=== PATIENT | male | born 1950 | race Caucasian/White ===

== ENCOUNTER 2016-09-08 09:58 | Day surgery (SDC) | payer MEDICARE, OTHER ==
[~2016-09-08] VITALS: Ht 182.9 cm; Wt 96.5 kg
[~2016-09-08 09:58] MED LIST: ALBU18HF INH; Lactated Ringer's 1,000 ML IV ONE; METF500T4 PO; OMEP40CA36 PO; SIMV20TA4 PO; TIOT18CA3 IH
[2016-09-08] MEDS ORDERED: Lidocaine PF 1% 30 mL Inj ONE (09:59)
[2016-09-08] MEDS ORDERED: Propofol 10,000 mCg/mL 20 mL Inj ONE (09:59)
[2016-09-08 10:29] VITALS: BP 115/74; PULSE 94; RESP 16; O2SAT 94
[2016-09-08] MEDS ORDERED: CANA100T PO (10:29)
[2016-09-08] MEDS ORDERED: FLUT15.88 NS (10:29)
[2016-09-08] MEDS ORDERED: IPRA4AER IH (10:29)
[2016-09-08] MEDS ORDERED: GLPZ5T PO (10:29)
[2016-09-08] MEDS ORDERED: ADV100INH IH (10:29)
--- NOTE | 2016-09-08 10:43 | PCM.HPANE ---
Patient Data Date of Service: Sep 08, 2016 Surgeon Admitting Provider: Attending Provider:Thomas Palmer MD Primary Care Physician:Fannie Ray MD Other Provider:Jaun Mathews Anesthesia Reason for Visit Hx Of Colon Polyps/Dysphagia Ht/WT & BMI Height (Feet): 6 Height (Inches): 0 Weight (Kilograms): 96.5 Body Mass Index 28.00 Allergies Coded Allergies: cortisone (Verified Allergy, Unknown, 09/07/16) oxycodone (Verified Allergy, Unknown, 09/08/16) Past Anesthesia History Anesthesia History: Denies:: Abnormal Airway, Anesthesia Reactions, Difficult Intubation, Fam Anesthesia Reaction, Fam Malignant Hypertherm, Malignant Hyperthermia Diabetes History Hx Diabetes?: Yes MRSA MRSA: No Medications Hypertension Medication: No Home Meds Incl Beta [place]: No Reported Medications Canagliflozin (Invokana)100 Mg [id number] Mg PO DAILY 09/08/16 Glipizide 5 Mg Tablet5 Mg PO DAILY 30 Days 09/08/16 Fluticasone Propionate 50 Mcg/Actuation [place].susp1 Ml NS DIRECTED PRN For Congestion 09/08/16 Albuterol/Ipratropium (Combivent Respimat Inhal [place])120 Spr/4 Gm Inhaler1 Puff IH QID #1 INH Ref 0 09/08/16 Fluticasone/Salmeterol (Advair 100-50 Diskus)60 Puffs/Inh Disk1 Puffs IH BID #1 DISK Ref 0 09/08/16 Albuterol Sulfate (Ventolin HFA Inhaler)200 Puff/18 Gm Inhaler1 Puff INH Q4 PRN For Wheezing #1 INHALER Ref 0 09/07/16 Tiotropium [place] (Spiriva)18 Mcg Cap.w.dev18 Mcg IH DAILY #1 PKG Ref 0 09/07/16 Simvastatin 20 Mg Mbbijr21 Mg PO HS Ref 0 09/07/16 Omeprazole 40 Mg Capsule.dr40 Mg PO BID Ref 0 09/07/16 Discontinued Reported Medications Metformin 500 Mg [id number] Mg PO BID Ref 0 09/07/16 History HEENT History: Positive for:: Dysphagia Denies:: Abnormal Airway Difficult Intubation Hearing Problem Denture Type: Partial- Upper Hx of Heart Problems?: No Cardiovascular History: Denies:: Pacemaker Hx of Respiratory Problem?: Yes Respiratory History: Positive for:: Asthma COPD Denies:: Tuberculosis (BCG tx in past; pt will test false positive) Neurological History: Denies:: CVA Hx of GI Problems?: Yes Gastrointestinal History: Positive for:: Gastroesphageal Reflux Hx of Problems?: No HX of Peritoneal Dialysis: No Hx Musculoskeletal Problems?: No Hx of Psycho/Social Problems?: No Hx Surgeries?: Yes (Bladder tumor removal, eyes, hernia rpr, foot neuroma, skin ca,) Hx Any Other Health Problems?: Yes Hx Diabetes: Yes Hx Alcohol Use: No Smoking Status: Former Smoker Stop/Bang Treated for Sleep Apnea?: No Do You Have a CPAP Machine?: No S-Snoring: Do You Snore Loudly: No T-Tired: feel tired, fatigued: No O-Obsered: Observed not breath: No P-Blood Pressure: treated: No B- Body Mass Index > 35 kg/m2: No A- Age over 50: Yes N- Neck Large Circumference: No G- Gender Male: Yes VERNA Total Score: 2 VERNA Risk Assessment: Low Risk, <3 Yes Risk Assessment Category Category 1A: Patient has history of documented sleep apnea, and HAS NOT received any narcotic, sedative or anesthesia administration during this stay. Category 1B: Patient has history of documented sleep apnea, and HAS received any narcotic , sedative or anesthesia administration during this stay Category 2: Patient has SUSPECTED Obstructive Sleep Apnea, and HAS received any narcotic , sedative or anesthesia administration during this stay. Category 3: Patient has SUSPECTED Obstructive Sleep Apnea and HAS NOT received narcotic, sedative or anesthesia administration during this stay. Category 4: Outpatient in Procedural Areas with known sleep apnea or who screen positive for High Risk via the STOP/BANG questionnaire. Exam Exam Vital Signs Vital Signs Date Time Temp Pulse Resp B/P Pulse Ox O2 Delivery O2 Flow Rate FiO2 09/08/16 10:29 94 16 115/74 94 Room Air General Appearance: Alert, Oriented X3, Cooperative HEENT/AIRWAY: MP 2, Neck Movement (Full), Mouth Opening (Wide) Lungs: Clear to Auscultation, Normal Air Movement Heart: Regular Rate/Rhythm, Normal S1, Normal S2 Plan Impression Patient chart reviewed, patient interviewed and anesthestic plan with risks, benefits, and alternatives discussed, and informed consent obtained. NPO Status: > 2 hours ASA Physical Status: ASA3 Severe Disease Anesthetic Plan: MAC Bene/Risks/Altern/Consents: Yes HP Complete Prior to Induction: Yes Germain Oliver MD Sep 08, 2016 10:43
[2016-09-08] MEDS ORDERED: Lactated Ringer's 1,000 ML IV SCH (10:44)
[2016-09-08] MEDS ORDERED: MetoCLOpramide 5 mg/mL 2 mL Inj IVPUSH PRN (10:45)
[2016-09-08] MEDS ORDERED: Atropine 0.4 mg/mL Inj IVPUSH PRN (10:45)
[2016-09-08] MEDS ORDERED: Ondansetron 2 mg/mL 2 mL Inj IVPUSH PRN (10:45)
[2016-09-08 11:15] VITALS: BP 86/62; PULSE 88; RESP 16; O2SAT 94
--- NOTE | 2016-09-08 11:24 | PCM.ANEP1 ---
Post Anesthesia Phase 1 PACU Phase 1 Assessment Date of Service: Sep 08, 2016 Vital Signs Vital Signs Date Time Temp Pulse Resp B/P Pulse Ox O2 Delivery O2 Flow Rate FiO2 09/08/16 11:15 36.3 88 16 86/62 94 Room Air 09/08/16 10:29 94 16 115/74 94 Room Air Anesthetic Administered: MAC Level of Alertness: Sleepy, easy to arouse WERNER's with Equal Strength: Yes Pain: No Nausea or Vomiting: No Oxygen Delivery: Room Air Lungs: Normal Air Movement Germain Oliver MD Sep 08, 2016 11:24
[2016-09-08 11:25] VITALS: BP 98/65; PULSE 82; RESP 16; O2SAT 94
[2016-09-08 11:35] VITALS: BP 98/62; RESP 16; O2SAT 94
[2016-09-08 11:45] VITALS: BP 105/69; PULSE 88; RESP 16; O2SAT 96
--- NOTE | 2016-09-08 11:54 | PCM.ANEP2 ---
Post Anesthesia Evaluation ASA/CMS Post Anesthesia Date of Service: Sep 08, 2016 VS in Patient's Normal Range?: Yes Resp Stable; Airway Patent?: Yes CV Function & Hydration Stable: Yes Mental Status Recovered?: Yes Pain control Satisfactory?: Yes N/V Control Satisfactory?: Yes Germain Oliver MD Sep 08, 2016 11:54
--- NOTE | 2016-09-08 14:30 | ENDO ---
[address] [address] ENDOSCOPY PROCEDURE PATIENT: KELSEY ESPINOZA : 1950 MR#: [id number] ADMIT: 09/08/2016 JOB ID: [id number] OPERATION: Esophagogastroduodenoscopy with biopsy with esophageal dilatation, colonoscopy with biopsy. PREOPERATIVE DIAGNOSIS(ES): Dysphagia and history of colon polyps. POSTOPERATIVE DIAGNOSIS(ES): 1. Small hiatal hernia. 2. Status post TTS CRE balloon dilatation performed up to 20 mm in the distal esophagus with good mucosal tear. 3. Four polyps seen the colon, the largest size 3 mm, three seen in the right colon, and 1 seen in the rectum. Status post removed by cold biopsy forceps. 4. Small internal hemorrhoids. ANESTHESIA: Monitored anesthesia care. COMPLICATIONS: None. BLOOD LOSS: Minimal. DESCRIPTION OF PROCEDURE: After the risks and benefits were explained to the patient, informed consent was obtained. After anesthesia was administered, the upper endoscope was inserted into the mouth, intubating the esophagus, stomach, and second portion of the duodenum, and the mucosa carefully examined. After the procedure was done, the scope was withdrawn and the procedure terminated. The colonoscope was inserted from rectum to the cecum and the mucosa carefully examined. Prep of the patient was fair. After the procedure was done, the scope was withdrawn and the procedure terminated. FINDINGS: Upon inspection of the esophagus, the esophagus was normal, without masses, ulcers, or lesions. Z-line located at 40 cm from the incisors. Upon entering the stomach, the stomach was normal, without masses, ulcers, or lesions. Retroflexion showed a small hiatal hernia. Duodenal bulb, first and second portion, there were no biopsies taken; antrum and body of the stomach, mid and distal esophagus. Afterwards, a CRE TTS balloon dilatation was performed up to 20 mm in the distal esophagus with good mucosal tear. Upon inspection of the anus, no masses, hemorrhoids, or ulcers were seen. During the entire examination, there were three polyps seen in the right colon and one in the rectum, largest size 3 mm, removed by cold biopsy forceps. Retroflexion showed small internal hemorrhoids. IMPRESSION: 1. Small internal hemorrhoids. 2. Four polyps seen throughout the entire colon, largest size 3 mm, removed by cold biopsy forceps. 3. Status post small hiatal hernia. 4. Successful TTS CRE balloon dilatation distal esophagus up to 20 mm in diameter. RECOMMENDATIONS: 1. Continue proton pump inhibitor. 2. Await biopsy results. If three or more tubular adenoma polyps, then next colonoscopy in three years. Otherwise, if less than three tubular adenoma polyps, next colonoscopy in five years.
--- NOTE | 2016-09-13 13:53 | PATH ---
SURGICAL PATHOLOGY Attending Physician:Thomas Palmer MD CASE STATUS: Signed Out PATIENT NAME: KELSEY ESPINOZA PID: [id number] : 1950 DATE COLLECTED:09/08/2016 16:05 SPECIMEN: 1: Stomach, Antrum, Biopsy 2: Gastric, Biopsy 3: Esophagus, Biopsy 4: Esophagus, Biopsy 5: Colon, Biopsy CLINICAL HISTORY: 1.ANTRUM BX 2.GASTRIC BODY BX 3.DISTAL ESOPHAGUS BX 4.MID ESOPHAGUS BX 5.COLON POLYPS BX FINAL DIAGNOSIS: 1. Stomach, Antrum, Biopsy: Antral mucosa with no diagnostic abnormality. Negative for inflammation and Helicobacter organisms. Negative for intestinal metaplasia, dysplasia and malignancy. 2. Stomach, Body, Biopsy: Body-type mucosa with no diagnostic abnormality. Negative for inflammation and Helicobacter organisms. Negative for intestinal metaplasia, dysplasia and malignancy. 3. Distal Esophagus, Biopsy: Squamous mucosa with chronic esophagitis. Negative for Couch's esophagus, dysplasia and malignancy. 4. Mid Esophagus, Biopsy: Squamous mucosa with no diagnostic abnormality. Negative for inflammation, eosinophilic esophagitis, dysplasia and malignancy. 5. Colon Polyps, Biopsy: One fragment of tubular adenoma. One fragment of hyperplastic polyp. Two fragments of colonic mucosa with benign intramucosal lymphoid aggregates. ICD D12.6 GROSS DESCRIPTION: The specimen is received in five formalin filled containers labeled with the patient's name. 1). The specimen is sublabeled "antrum" and consists of 2 portions of tissue which aggregate to 0.6 x 0.3 x 0.2 CM. The specimen is entirely submitted in cassette 1A. 2). The specimen is sublabeled "gastric body" and consists of 2 portions of tissue which aggregate to 0.5 x 0.3 x 0.2 CM. The specimen is entirely submitted in cassette 2A. 3). The specimen is sublabeled "distal esophagus" and consists of 2 portions of tissue which aggregate to 0.3 x 0.3 x 0.2 CM. The specimen is entirely submitted in cassette 3A. 4). The specimen is sublabeled "mid esophagus" and consists of 2 portions of tissue which aggregate to 0.3 x 0.3 x 0.2 CM. The specimen is entirely submitted in cassette 4A. 5). The specimen is sublabeled "colon polyps" and consists of 4 portions of tissue which aggregate to 0.5 x 0.5 x 0.3 CM. The specimen is entirely submitted in cassette 5A. 09/08/2016 [facility] ICD-9 CODES: CPT CODES: 1: 87501 2: 53546 3: 51769 4: 81496 5: 59844 Electronically Signed Out Seymour Keita MD, PhD [facility], [place] [address] Technical component performed at [facility], [facility] [address], [place], [address]
== END 2016-09-08 23:59 | disposition home or self-care (01) ==
LOC: END 09:58
PROVIDERS: ATTEND Internal Medicine Gastroenterology
DX: Z12.11 Encounter for screening for malignant neoplasm of colon (principal); D12.6 Benign neoplasm of colon, unspecified; K44.9 Diaphragmatic hernia without obstruction or gangrene; K21.0 Gastro-esophageal reflux disease with esophagitis; R13.10 Dysphagia, unspecified; Z86.010 Personal history of colon polyps; Z79.899 Other long term (current) drug therapy; Z87.891 Personal history of nicotine dependence
CPT/HCPCS: 43239; 45380; J7120